=== PATIENT | male | born 1950 | race Caucasian/White ===

== ENCOUNTER 2017-08-02 05:50 | Observation (INO) | payer MEDICARE ==
[~2017-08-02] VITALS: Ht 190.5 cm; Wt 93.9 kg
[~2017-08-02 05:50] MED LIST: ATOR20TA9 PO; DOXA4TAB3 PO; HYDR-3237 PO; HYDR-3240 PO; HYDR-3245 PO; LOSA100T6 PO; MELO15TA24 PO
[2017-08-02] MEDS ORDERED: LACTATED RINGERS 1,000 ML IV SCH (06:39)
[2017-08-02] MEDS ORDERED: EPINEPHRINE 1 MG/ML, 1ML ONE (07:00)
[2017-08-02] MEDS ORDERED: BUPIVACAINE/PF 0.5% ONE (07:00)
[2017-08-02] MEDS ORDERED: BACITRACIN 50,000 UNIT ONE (07:00)
[2017-08-02] MEDS ORDERED: FENTANYL PF 250 MCG/5ML ONE (07:07)
[2017-08-02] MEDS ORDERED: MIDAZOLAM 1 MG/ML, 2ML ONE ×2 (07:07→09:27)
[2017-08-02] MEDS ORDERED: KETOROLAC 30 MG/1 ML ONE (07:45)
[2017-08-02] MEDS ORDERED: PROPOFOL 10 MG/ML, 20ML ONE (08:26)
[2017-08-02] MEDS ORDERED: GLYCOPYRROLATE 0.2MG/1ML, 5ML ONE (08:26)
[2017-08-02] MEDS ORDERED: DEXAMETHASONE 4 MG/ML, 1ML ONE (08:26)
[2017-08-02] MEDS ORDERED: NEOSTIGMINE 1 MG/ML, 10ML ONE (08:26)
[2017-08-02] MEDS ORDERED: SUCCINYLCHOLINE 20 MG/ML, 10ML ONE (08:26)
[2017-08-02] MEDS ORDERED: CEFAZOLIN 1,000 MG ONE (08:26)
[2017-08-02] MEDS ORDERED: ROCURONIUM 10 MG/ML,10ML ONE (08:26)
[2017-08-02] MEDS ORDERED: ONDANSETRON 2MG/ML, 2ML ONE (08:26)
[2017-08-02] MEDS ORDERED: MIDAZOLAM 1 MG/ML, 2ML IV PRN (08:30)
[2017-08-02] MEDS ORDERED: ACETAMINOPHEN 325 MG TABLET PO PRN (08:30)
[2017-08-02] MEDS ORDERED: OXYcodone 5 MG/5 ML ORAL.SOL UDC PO PRN (08:30)
[2017-08-02] MEDS ORDERED: ALBUTEROL SULFATE 2.5 MG/3 ML NPPB PRN (08:30)
[2017-08-02] MEDS ORDERED: PROMETHAZINE 12.5 MG SUPP PR PRN (08:30)
[2017-08-02] MEDS ORDERED: HYDROcodone/APAP 7.5-325MG/15ML UDC PO PRN (08:30)
[2017-08-02] MEDS ORDERED: ALBUTEROL/IPRATROPIUM 2.5MG/0.5MG, 3 ML NPPB PRN (08:30)
[2017-08-02] MEDS ORDERED: DIAZEPAM 5 MG/ML, 2ML IVPush PRN (08:30)
[2017-08-02] MEDS ORDERED: METOPROLOL 1 MG/ML, 5ML IV PRN (08:30)
[2017-08-02] MEDS ORDERED: EPHEDRINE 50 MG/ML, 1ML IVPush PRN (08:30)
[2017-08-02] MEDS ORDERED: ONDANSETRON 2MG/ML, 2ML IVPush PRN (08:30)
[2017-08-02] MEDS ORDERED: hydrALAzine 20 MG/ML, 1ML IV PRN (08:30)
[2017-08-02] MEDS ORDERED: MEPERIDINE/PF 25MG/0.5ML IVPush PRN (08:30)
[2017-08-02] MEDS ORDERED: FENTANYL PF 100 MCG/2ML ONE ×2 (09:04→09:10)
[2017-08-02] MEDS: FENTANYL PF 100 MCG/2ML IV PRN ×2 (09:09→09:20)
[2017-08-02] MEDS ORDERED: HYDROmorphone 2 MG/ML, 1ML ONE (09:10)
[2017-08-02] MEDS ORDERED: ACETAMINOPHEN 650 MG/20.3 ML UDC ONE (09:10)
[2017-08-02] MEDS: HYDROmorphone 1 MG/ML, 1ML IV PRN ×3 (09:13→09:32)
[2017-08-02] MEDS ORDERED: KETAMINE 10 MG/ML, 20ML ONE (09:23)
[2017-08-02] MEDS ORDERED: MEPERIDINE/PF 50 MG/ML ONE (09:24)
[2017-08-02] MEDS: LABETALOL 5MG/ML, 20ML IV PRN ×2 (09:36→09:47)
[2017-08-02] MEDS ORDERED: hydrALAzine 20 MG/ML, 1ML ONE (09:52)
[2017-08-02 11:30] VITALS: BP 178/95
[2017-08-02 12:00] VITALS: BP 149/84
[2017-08-02] MEDS: SODIUM CHLORIDE 0.9% 1,000 ML IV SCH ×2 (12:00→20:55)
[2017-08-02] MEDS ORDERED: ONDANSETRON 2MG/ML, 2ML IV PRN (12:00)
[2017-08-02] MEDS: morphine SULFATE 10 MG/ML, 1ML IV PRN ×2 (12:15→16:49)
[2017-08-02] MEDS: CEFAZOLIN PMX 1GM/50ML 50 ML IV SCH ×2 (16:40→23:47)
[2017-08-02 19:39] VITALS: BP 151/69
[2017-08-02] MEDS: HYDROcodone/APAP 5/325 TABLET PO PRN ×2 (19:45→23:47)
[2017-08-02] MEDS ORDERED: DOXAZOSIN 2MG TABLET PO SCH (21:00)
[2017-08-02] MEDS ORDERED: MELOXICAM 15 MG TABLET PO SCH (21:00)
[2017-08-02] MEDS ORDERED: ATORVASTATIN 20 MG TABLET PO SCH (21:00)
[2017-08-02 23:44] VITALS: BP 153/71
[2017-08-03] MEDS: HYDROcodone/APAP 5/325 TABLET PO PRN ×2 (03:50→08:56)
[2017-08-03 04:45] VITALS: BP 155/85
[2017-08-03] MEDS: CEFAZOLIN PMX 1GM/50ML 50 ML IV SCH (07:31)
[2017-08-03 07:39] VITALS: BP 161/85
[2017-08-03] MEDS ORDERED: HYDR-3237 PO (08:29)
[2017-08-03] MEDS ORDERED: LOSARTAN 50MG TABLET PO SCH (09:00)
== END 2017-08-03 09:20 | disposition home or self-care (01) ==
LOC: OUT 05:50 → 4NOR 11:35 → OUT 11:55 → DCLOUNGE 08-03 09:10
PROVIDERS: ADMIT Surgery Vascular Surgery; ATTEND Surgery Vascular Surgery
DX: K43.2 Incisional hernia without obstruction or gangrene (principal); F10.10 Alcohol abuse, uncomplicated; Z82.49 Family history of ischemic heart disease and other diseases of the circulatory system; I71.6 Thoracoabdominal aortic aneurysm, without rupture
CPT/HCPCS: 49566; 49568; 96365; 96375; 96376; C1729; C1781; G0378; J0330; J0360; J0690; J1100; J1170; J1885; J2175; J2250; J2270; J2405; J2704; J2710; J3010; J3360; J7030; J7120; J0171; J3490